=== PATIENT | female | born 1965 | race Caucasian/White ===

== ENCOUNTER 2017-03-17 11:00 | Emergency (ER) | payer BC ==
--- OUTSIDE RECORDS SUMMARY | 2017-03-17 12:24 | XMS REPORT ---
:1965 External Reference #:[id number] Author Organization [employer] [facility] Address [address] [address] Phone [phone] Care Team Providers Name Role Phone Nixon Sawyer MD Care Team Information Consulting Technical Manager Unavailable Nixon Sawyer MD Primary Care Physician Unavailable Payers Type Date Identification Numbers Payment Provider Subscriber Commercial Policy Number: [id number] BS Facets Kaylan Main PayID: [id number] [address] [address] [place] [address] Problems Date Description Provider Status Onset: 04/12/2005 Obstructive sleep apnea Anna Marrero DNP, RN, Active syndrome 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 Family History Date Family Member(s) Problem(s) Comments Father due to Age 47 ID () Mother due to At 58 Cancer () Mother Heart Disease Mother Breast Cancer Mother Lung Cancer Mother Hodgkin's Lymphoma Mother Ovarian Cancer Mother Melanoma Social History Type Date Description Comments Marital Status Lives With Occupation Currently Working Cigarette Use Quit 20 Years Ago ETOH Use Occasionally consumed alcohol in the past Smoking Patient is a former smoker Recreational Drug Use Denies Drug Use Daily Caffeine Consumes on average 2 cups of hot tea per day Daily Caffeine Soda 2x per week Exercise Type/Frequency Does not exercise Allergies, Adverse Reactions, Alerts Date Description Reaction Status Severity Comments 11/15/2014 Codeine active 11/15/2014 Ultram active 11/15/2014 Keflex active bact 11/15/2014 Bactrim active 11/15/2014 Levaquin active 11/15/2014 IVP Contrast active Medications Medication Date Status Form Strength Qnty SIG Indications Ordering Provider Maria C Root 11/27/ Active Capsules 500mg as Unknown 2016 directed Tumeric 11/27/ Active Tablets as Unknown 2015 directed Naltrexone 02/06/ Active 4.5mg as Unknown 2014 directed Famciclovir 12/26/ Active Tablets 500mg as needed Unknown 2014 by mouth Buspirone HCL 11/14/ Active Tablets 5mg take one Unknown 2014 tablet by mouth 3 times a day Paxil 11/14/ Active Tablets 20mg 1 by mouth Unknown 2014 every day Xyzal 11/14/ Active Tablets 2.5mg 1 by mouth Unknown 2014 every day Vitamin D-3 11/14/ Active Capsules 5000Unit 2 by mouth Unknown 2014 every day Nortriptyline 11/14/ Active Capsules 25mg 1 by mouth Unknown HCL 2014 every night at bedtime Lipitor 11/14/ Active Tablets 10mg one tab by Unknown 2014 mouth every night at bedtime Aspirin 11/14/ Active Tablets DR 81mg 1 by mouth Unknown 2014 every day Glucosamine / Active Unknown Chondroitin 0000 1500 Complex Milk Thistle 12/27/ Hx Capsules 175mg by mouth Anna 2014 - every day Elida, 02/23/ ITALIA, RN, 2018 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 Vitamin C 11/15/ Hx Chewtabs 500mg 1 by mouth Anna 2014 - every day Elida 11/15/ ITALIA, RN, 2015 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 Dicyclomine HCL 11/14/ Hx Capsules 10mg three Unknown 2014 - times a day as 2016 needed Protonix 11/14/ Hx Tablets DR 40mg 1 by mouth Unknown 2014 - every day 2017 Famvir 11/14/ Hx Tablets 500mg 2 tabs Unknown 2014 - twice a 02/23/ day as 2018 needed Calcium 600 + D 11/14/ Hx Tablets 600-200mg- 1 by mouth Unknown 2014 - Unit every day 2014 Pentasa 11/14/ Hx Capsules 250mg 1 by mouth Unknown 2014 - ER four times 11/27/ a day 2016 Budesonide ER 11/14/ Hx Caps ER 3mg 2 by mouth Unknown 2014 - 24HR daily 2017 Remicade 11/14/ Hx Solution 100mg every 8 Unknown 2014 - Rec weeks 2017 Fish Oil 11/14/ Hx Capsules 1000mg 1 by mouth Unknown 2014 - DR every day 2017 Triamcinolone 11/14/ Hx Lotion 0.1% apply to Unknown Acetonide 2015 - dry skin 02/23/ once or 2018 twice daily Vital Signs Date Vital Result Comment 02/23/2017 Height 63 inches 5'3" Weight 260.50 lb with shoes Heart Rate 88 /min BP Systolic Sitting 138 mmHg Lue large cuff BP Diastolic Sitting 100 mmHg Lue large cuff Respiratory Rate 16 /min O2 % BldC Oximetry 97 % On Ra BMI (Body Mass Index) 46.1 kg/m2 12/01/2015 Height 63 inches 5'3" Weight 225.00 lb per pt Heart Rate 82 /min BP Systolic Sitting 130 mmHg BP Diastolic Sitting 76 mmHg Respiratory Rate 16 /min O2 % BldC Oximetry 97 % BMI (Body Mass Index) 39.9 kg/m2 12/27/2014 Heart Rate 87 /min BP Systolic Sitting 124 mmHg BP Diastolic Sitting 68 mmHg Respiratory Rate 18 /min O2 % BldC Oximetry 97 % 11/15/2014 Height 64 inches 5'4" Weight 259.25 lb Heart Rate 89 /min BP Systolic 128 mmHg BP Diastolic 72 mmHg Respiratory Rate 14 /min Body Temperature 98.6 F O2 % BldC Oximetry 97 % BMI (Body Mass Index) 44.5 kg/m2 Neck Circumference in inches 16 Results Description No Information Procedures Description No Information Encounters Type Date Location Provider CPT E/M Dx Office Visit 12/01/2015 [facility] Anna Marrero, 63158 G47.33 9:30a [facility] RN, BONIFACIO-NOEMÍ Office Visit 12/27/2014 [facility] Anna Marrero 55302 G47.33 3:15p [facility] ECHAVARRIA RN, BONIFACIO-NOEMÍ Office Visit 11/15/2014 [facility] Anna Marrero, 81203 G47.33 3:00p [facility] ECHAVARRIA RN, BONIFACIO-NOEMÍ Office Visit 11/12/2011 [facility] [place], [address] 327.23 11:58a [facility] Erica Plan of Care 02/23/2017 - Anna Marrero DNP, FREDDY, BONIFACIO-[id number] Obstructive sleep apnea ( adult) (pediatric)Comments:Sleep Apnea - mild 9.9/hour initial dx 2005. On CPAP AHI 1.9/hour (normal)Follow up:1 yearRecommendations:Continue PAP device, Benefitting and compliant with treatment. If you have any sleepiness while driving you MUST avoid operating a vehicle or machinery. If you have difficulty with your equipment, or need to replace your mask or hoses, please contact your homecare agency. A weight change of 20 pounds or more may have an effect on your equipment; if you are experiencing problems please call for an appointment. If you have any further questions, please call the [facility] at [phone].z68.42 Body mass index (BMI) 45.0-49.9, adultRecommendations:Recommend exercise and weight loss measures
[2017-03-17 12:31] VITALS: BP 126/78
--- NOTE | 2017-03-17 12:51 | UC ---
FLU HPI - HPI Summary HPI Summary: 52F presents with headache, fatigue body aches, and diarrhea for a couple days. She states that it started with ear fullness and then body aches. She then developed generalized abdominal pain and diarrhea. She denies any blood in her stool. She denies any vomiting but does admit to occasionally nausea. She admits to fevers. She denies any neck stiffness. She has not taken anything for her symptoms. She admits to a decrease in appetite. She admits to occasionally cough and she admits to sore throat. - History of Current Complaint Chief Complaint: UCRespiratory Stated Complaint: HEADACHE BODY ACHES SORE THROAT Time Seen by Provider: 03/17/17 12:33 Hx Last Menstrual Period: 2002 Pain Intensity: 0 - Allergy/Home Medications Allergies/Adverse Reactions: Allergies Allergy/AdvReac Type Severity Reaction Status Date / Time Cephalexin [From Keflex] Allergy Hives Verified 03/17/17 12:17 Codeine Allergy Difficulty Verified 03/17/17 12:17 Breathing/Wheezing Iodinated Contrast Media Allergy Anaphylatic Verified 03/17/17 12:17 [IV CONTRAST DYE] Shock Levofloxacin [From Levaquin] Allergy Difficulty Verified 03/17/17 12:17 Swallowing Penicillins Allergy Difficulty Verified 03/17/17 12:17 Breathing/Wheezing Sulfamethoxazole Allergy Hives Verified 03/17/17 12:17 w/Trimethoprim [From Bactrim] Tramadol [From Ultram] Allergy Difficulty Verified 03/17/17 12:17 Breathing/Wheezing Home Medications: Home Medications Xrihpbdhagm-Hifrnnvcshs-Boo C- [Glucosamine Chondroitin] 1 tab PO DAILY [History Confirmed 03/17/17] Misc Natural Products [Turmeric Curcumin] 1 cap PO DAILY 03/17/17 [History Confirmed 03/17/17] PMH/Surg Hx/FS Hx/Imm Hx Endocrine History: Other Other Endocrine History: no DM GI/ History: Other Other GI/ History: crohns - Surgical History Surgical History: Yes Surgery Procedure, Year, and Place: HYSTERECTOMY, MARYANN MASTECTOMIES prophylactaly , CHOLECYSTECTOMY, - Family History Known Family History: Positive: Other - brca1 - Social History Alcohol Use: None Substance Use Type: None Smoking Status (MU): Former Smoker When Did the Patient Quit Smoking/Using Tobacco: 1993 Review of Systems Constitutional: Fever, Fatigue Respiratory: Cough Gastrointestinal: Abdominal Pain, Diarrhea All Other Systems Reviewed And Are Negative: Yes Physical Exam Triage Information Reviewed: Yes Appearance: Well-Appearing Vital Signs: Initial Vital Signs Temp 99.2 F 03/17/17 12:22 Pulse 83 03/17/17 12:22 Resp 18 03/17/17 12:22 BP 126/78 03/17/17 12:22 Pulse Ox 99 03/17/17 12:22 Vital Signs Reviewed: Yes Eye Exam: Normal ENT: Positive: Normal ENT inspection, Pharynx normal, TMs normal, Uvula midline , Other - soft palate symmetric. Negative: Tonsillar swelling, Tonsillar exudate, Trismus, Muffled voice Neck: Positive: Supple, Nontender, No Lymphadenopathy Respiratory: Positive: Lungs clear, Normal breath sounds Cardiovascular: Positive: RRR Abdomen Description: Positive: Nontender, Soft Bowel Sounds: Positive: Present Musculoskeletal Exam: Normal Neurological Exam: Normal Psychological Exam: Normal Skin Exam: Normal Flu Course/Dx - Course Course Of Treatment: 52F presents with headache, fatigue body aches, and diarrhea for a couple days. She states that it started with ear fullness and then body aches. She then developed generalized abdominal pain and diarrhea. She denies any blood in her stool. She denies any vomiting but does admit to occasionally nausea. She admits to fevers. She denies any neck stiffness. She has not taken anything for her symptoms. She admits to a decrease in appetite. She admits to occasionally cough and she admits to sore throat. on exam pharynx erythema uvula midline, soft palate symmetric, abdomen soft nontender. flu neg. medication reviewed. blood pressure in pre-htn range so will follow up with primary. discussed treatment options and patient will start using tyenlol for pain. patient understand and agrees with plan. - Differential Dx/Diagnosis Differential Diagnosis/HQI/PQRI: Influenza, Pneumonia, Upper Respiratory Infection Provider Diagnoses: upper respiratory infection Discharge - Discharge Plan Condition: Good Disposition: HOME Patient Education Materials: Upper Respiratory Infection (ED) Forms: *Work Release Referrals: Nixon Sawyer MD [Primary Care Provider] - Additional Instructions: Take Tylenol for headache every 6 hours Drink small amounts of fluid as tolerated When able to eat follow BRAT diet: Bananas, rice, applesauce, toast Follow up with primary within 5 days Return to ED if develop any new or worsening symptoms
== END 2017-03-17 13:01 | disposition home or self-care (01) ==
LOC: UCCORT 11:00
DX: J06.9 Acute upper respiratory infection, unspecified (principal); Z87.891 Personal history of nicotine dependence; Z88.5 Allergy status to narcotic agent; Z88.0 Allergy status to penicillin; Z88.2 Allergy status to sulfonamides; Z88.3 Allergy status to other anti-infective agents; Z91.041 Radiographic dye allergy status
CPT/HCPCS: 87502; 99212; G0463

== ENCOUNTER 2017-03-20 07:08 | Emergency (ER) | payer BC ==
--- NOTE | 2017-03-20 07:32 | UC ---
Respiratory Complaint HPI - HPI Summary HPI Summary: 5 days of congestion and cough. She was seen here and this note was reviewed. Influenza neg. She was dx with uri. Now she has more sinus pressure and ear pressure making it hard to use CPAP at night. She denies fever or productive cough. No known lung disease. - History of Current Complaint Stated Complaint: RE-CHECK SORE THOAT,COUGH,ACHY Time Seen by Provider: 03/20/17 07:18 Hx Obtained From: Patient Hx Last Menstrual Period: 2002 Onset/Duration: Gradual Onset, Lasting Days Timing: Constant Severity Initially: Moderate Severity Currently: Moderate Character: Cough: Nonproductive Aggravating Factors: Deep Breaths, Recumbent Position Alleviating Factors: Upright Position, Nothing Associated Signs And Symptoms: Positive: URI, Nasal Congestion, Sinus Discomfort - Allergies/Home Medications Allergies/Adverse Reactions: Allergies Allergy/AdvReac Type Severity Reaction Status Date / Time Cephalexin [From Keflex] Allergy Hives Verified 03/17/17 12:17 Codeine Allergy Difficulty Verified 03/17/17 12:17 Breathing/Wheezing Iodinated Contrast Media Allergy Anaphylatic Verified 03/17/17 12:17 [IV CONTRAST DYE] Shock Levofloxacin [From Levaquin] Allergy Difficulty Verified 03/17/17 12:17 Swallowing Penicillins Allergy Difficulty Verified 03/17/17 12:17 Breathing/Wheezing Sulfamethoxazole Allergy Hives Verified 03/17/17 12:17 w/Trimethoprim [From Bactrim] Tramadol [From Ultram] Allergy Difficulty Verified 03/17/17 12:17 Breathing/Wheezing PMH/Surg Hx/FS Hx/Imm Hx Previously Healthy: No - Surgical History Surgical History: Yes Surgery Procedure, Year, and Place: HYSTERECTOMY, MARYANN MASTECTOMIES prophylactaly , CHOLECYSTECTOMY, - Family History Known Family History: Positive: Other - brca1 - Social History Occupation: Employed Full-time Alcohol Use: None Substance Use Type: None Smoking Status (MU): Former Smoker When Did the Patient Quit Smoking/Using Tobacco: 1993 Review of Systems ENT: Sinus Congestion Respiratory: Cough All Other Systems Reviewed And Are Negative: Yes Physical Exam Triage Information Reviewed: Yes Appearance: Well-Appearing - Non toxic but frequent cough., Obese Vital Signs Reviewed: Yes ENT: Positive: Hearing grossly normal, Pharynx normal, Nasal congestion, TM bulging, Uvula midline. Negative: Pharyngeal erythema, Nasal drainage, TM dull , TM red, Tonsillar swelling, Tonsillar exudate, Trismus, Muffled voice, Sinus tenderness Neck: Positive: Supple, Nontender, No Lymphadenopathy Respiratory: Positive: Lungs clear, Normal breath sounds, No respiratory distress, No accessory muscle use. Negative: Respiratory distress, Decreased breath sounds, Accessory muscle use, Crackles, Rhonchi, Stridor, Wheezing Cardiovascular: Positive: RRR, No Murmur, Pulses Normal Abdomen Description: Positive: No Organomegaly, Soft. Negative: Distended, Guarding Musculoskeletal: Positive: ROM Intact, No Edema Neurological: Positive: Alert, Muscle Tone Normal. Negative: Fatigued Psychological: Positive: Age Appropriate Behavior Skin: Negative: rashes Respiratory Course/Dx - Course Course Of Treatment: NO signs of bacterial infections at this point. We discussed supportive care and focus on decongestants and sinus irrigation. Z pack if not better by day 9. No clinical signs of pnuemonia. - Differential Dx/Diagnosis Provider Diagnoses: uri]. viral sinusitis. Discharge - Discharge Plan Condition: Good Disposition: HOME Prescriptions: Azithromyxin MARIXA (NF) [Z-Marixa (Zithromax) 250 mg tabs #6] 2 tab PO .TODAY, THEN 1 DAILY #6 tab Benzonatate CAP* [Tessalon 100 MG CAP*] 100 mg PO TID PRN #30 cap PRN Reason: Cough Patient Education Materials: Upper Respiratory Infection (DC) Forms: *Work Release Referrals: Nixon Sawyer MD [Primary Care Provider] - If Needed
[2017-03-20 07:50] VITALS: BP 150/90
== END 2017-03-20 07:50 | disposition home or self-care (01) ==
LOC: UCCORT 07:08
DX: J06.9 Acute upper respiratory infection, unspecified (principal); J32.9 Chronic sinusitis, unspecified; E66.9 Obesity, unspecified; Z90.710 Acquired absence of both cervix and uterus; Z90.49 Acquired absence of other specified parts of digestive tract; Z90.13 Acquired absence of bilateral breasts and nipples; Z88.5 Allergy status to narcotic agent; Z88.0 Allergy status to penicillin; Z88.2 Allergy status to sulfonamides; Z88.1 Allergy status to other antibiotic agents; Z91.041 Radiographic dye allergy status; Z87.891 Personal history of nicotine dependence
CPT/HCPCS: 99212; G0463

== ENCOUNTER 2018-05-23 07:21 | Emergency (ER) | payer BC ==
--- OUTSIDE RECORDS SUMMARY | 2018-05-23 07:30 | XMS REPORT | Continuity of Care Document ---
:1965 External Reference #:[id number] Author Name Karol Shoemaker Care Team Providers Name Role Phone Nixon Sawyer MD Care Team Information Precision Agriculture Technician Unavailable Nixon Sawyer MD Primary Care Physician Unavailable Payers Date Identification Numbers Payment Provider Subscriber Policy Number: [id number] BS Facets Kaylan Main PayID: [id number] [address] [place] [place] [address] Expires: 2017 Policy Number: [id number] BS Of [place] Main Group Number: [id number] [address] [address] Group Name: [place] [id number] PayID: [id number] Advance Directives Description No Information Available Problems Date Description Provider Status Onset: 04/12/2005 Obstructive sleep apnea Anna Marrero DNP, RN, Active syndrome 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 Family History Date Family Member(s) Observation Comments Father due to Age 47 MS () Mother due to At 58 Cancer () Mother Heart Disease Mother Breast Cancer Mother Lung Cancer Mother Hodgkin's Lymphoma Mother Ovarian Cancer Mother Melanoma Social History Type Date Description Comments Sex Unknown Marital Status Lives With Occupation Currently Working Cigarette Use Quit 20 Years Ago ETOH Use Occasionally consumed alcohol in the past Tobacco Use Start: Unknown End: Patient is a former smoker Unknown Recreational Drug Use Denies Drug Use Smoking Status Reviewed: 05/15/18 Patient is a former smoker Exercise Type/Frequency Does not exercise Allergies, Adverse Reactions, Alerts Date Description Reaction Status Severity Comments 11/15/2014 Codeine Active 11/15/2014 Ultram Active 11/15/2014 Keflex Active bact 11/15/2014 Bactrim Active 11/15/2014 Levaquin Active 11/15/2014 IVP Contrast Active 05/15/2018 Penicillin Active Medications Medication Date Status Form Strength Qnty SIG Indications Ordering Provider Maria C Root 11/27/ Active Capsules 500mg as Unknown 2015 directed Tumeric 11/27/ Active Tablets as Unknown 2015 directed Famciclovir 12/26/ Active Tablets 500mg as [...] / Active Unknown Chondroitin 0000 1500 Complex Magnesium / Active 1 by mouth Unknown 0000 one time per day CBD Oil / Active 300 mg by Unknown 0000 mouth two times per day Naltrexone 02/06/ Hx 4.5mg as Unknown 2014 - directed 2018 Milk Thistle 12/27/ Hx Capsules 175mg by mouth Anna 2014 - every day Elida 02/23/ ITALIA, RN, 2018 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 Vitamin C 11/15/ Hx Chewtabs 500mg 1 by mouth Anna 2014 - every day Elida 11/15/ ITALIA, RN, 2014 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 Dicyclomine HCL 11/14/ Hx Capsules 10mg three Unknown 2014 - times a 11/27/ day as 2016 needed Protonix 11/14/ Hx [...] Caps ER 3mg 2 by mouth Unknown 2015 - 24HR daily 2017 Remicade 11/14/ Hx Solution 100mg every 8 Unknown 2015 - Rec weeks 2017 Fish Oil 11/14/ Hx Capsules 1000mg 1 by mouth Unknown 2015 - DR every day 2017 Triamcinolone Hx Lotion 0.1% apply to Unknown Acetonide 2015 - dry skin 02/23/ once or 2018 twice daily Immunizations Description No Information Available Vital Signs Date Vital Result Comment 05/15/2018 8:55am Height 63 inches 5'3" Weight 260.12 lb Heart Rate 78 /min BP Systolic Sitting 124 mmHg Lue large cuff BP Diastolic Sitting 100 mmHg Lue large cuff Respiratory Rate 14 /min O2 % BldC Oximetry 98 % On Ra BMI (Body Mass Index) 46.1 kg/m2 02/23/2017 9:32am Height 63 inches 5'3" Weight 260.50 lb with shoes Heart Rate 88 /min BP Systolic Sitting 138 mmHg Lue large cuff BP Diastolic Sitting 100 mmHg Lue large cuff Respiratory Rate 16 /min O2 % BldC Oximetry 97 % On Ra BMI (Body Mass Index) 46.1 kg/m2 12/01/2015 9:32am Height 63 inches 5'3" Weight 225.00 lb per pt Heart Rate 82 /min BP Systolic Sitting 130 mmHg BP Diastolic Sitting 76 mmHg Respiratory Rate 16 /min O2 % BldC Oximetry 97 % BMI (Body Mass Index) 39.9 kg/m2 12/27/2014 3:22pm Heart Rate 87 /min BP Systolic Sitting 124 mmHg BP Diastolic Sitting 68 mmHg Respiratory Rate 18 /min O2 % BldC Oximetry 97 % 11/15/2014 2:55pm Height 64 inches 5'4" Weight 259.25 lb Heart Rate 89 /min BP Systolic 128 mmHg BP Diastolic 72 mmHg Respiratory Rate 14 /min Body Temperature 98.6 F O2 % BldC Oximetry 97 % BMI (Body Mass Index) 44.5 kg/m2 Neck Circumference in inches 16 Results Description No Information Available Procedures Description No Information Available Encounters Type Date Location Provider Dx Diagnosis Office Visit 03/01/2018 [facility] Dianne Tate, L82.1 Other seborrheic 4:20p Rajan PÉREZ keratosis L91.0 Hypertrophic scar L85.3 Xerosis cutis Office Visit 02/23/2017 [facility] Anna G47.33 Obstructive sleep 9:15a [facility] Marrero RN, apnea (adult) [facility]- (pediatric) E66.01 Morbid (severe) obesity due to excess calories Z68.42 Body mass index (BMI) 45.0-49.9, adult Office Visit 12/01/2015 [facility] Anna G47.33 Obstructive sleep 9:30a [facility] Marrero RN, apnea (adult) [facility] 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 (pediatric) Office Visit 12/27/2014 [facility] Anna G47.33 Obstructive sleep 3:15p [facility] Mar[facility]ro RN, apnea (adult) [facility] 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 (pediatric) Office Visit 11/15/2014 [facility] Anna G47.33 Obstructive sleep 3:00p [facility] Marrero RN, apnea (adult) [facility] ELECTRONIC EQUIPMENT REPAIRER- (pediatric) Office Visit 11/12/2011 [facility] Squires 327.23 Obstructive Sleep 11:58a [facility] Apnea Adult & Pediatric Plan of Treatment Future Appointment(s):09/07/2018 4:15 pm - Dianne Tate MD at [facility] AT Zpfmyylg35/25/2019 - Anna Marrero DNP, RN, [facility]-[id number] Obstructive sleep apnea (adult) (pediatric)Comments:Sleep Apnea - mild 9.9/hour initial dx 2005. Equipment from 2010.On CPAP AHI 1.3/hourFollow up:1 yearRecommendations:Continue PAP device, Benefitting and compliant with treatment. Cleaning Wipe off mask daily (baby wipe-no scent, or warm water) Clean mask, tubing, filter, and water chamber weekly in mild no scent dish soap and water. Hang to dry. If you have any sleepiness while driving you MUST avoid operating a vehicle or machinery. If you have difficulty with your equipment, or need to replace your mask or hoses, please contact your homecare agency. Orders to be sent to [facility]: [phone] A weight change of 20 pounds or more may have an effect on your equipment; if you are experiencing problems please call for an appointment. If you have any further questions, please call the Sleep Disorder Center at [phone].Z68.42 Body mass index ( BMI) 45.0-49.9, adultRecommendations:Avoid weight gain
[2018-05-23 07:35] VITALS: BP 158/98
--- NOTE | 2018-05-23 07:48 | UC ---
Throat Pain/Nasal Jeffrey HPI - HPI Summary HPI Summary: sinus pain and pressure x 4 days had cold symptoms for the past 10 days nasal congestion, cough , pnd, fever, no chills, no body aches - History of Current Complaint Chief Complaint: UCRespiratory Stated Complaint: SINUS COMPLAINT,FEVER Time Seen by Provider: 05/23/18 07:34 Hx Obtained From: Patient Hx Last Menstrual Period: 2002 Onset/Duration: Gradual Onset, Lasting Days - 10, Still Present, Worse Since - past 3 days Severity: Moderate Pain Intensity: 3 Cough: Nonproductive Associated Signs & Symptoms: Positive: Sinus Discomfort, Nasal Discharge, Fever. Negative: Vomiting, Rash - Allergies/Home Medications Allergies/Adverse Reactions: Allergies Allergy/AdvReac Type Severity Reaction Status Date / Time cephalexin [From Keflex] Allergy Hives Verified 05/23/18 07:41 codeine Allergy Difficulty Verified 05/23/18 07:41 Breathing/Wheezing levofloxacin [From Levaquin] Allergy Difficulty Verified 05/23/18 07:41 Swallowing Penicillins Allergy Difficulty Verified 05/23/18 07:41 Breathing/Wheezing sulfamethoxazole Allergy Hives Verified 05/23/18 07:41 [From Bactrim] tramadol [From Ultram] Allergy Difficulty Verified 05/23/18 07:41 Breathing/Wheezing trimethoprim [From Bactrim] Allergy Hives Verified 05/23/18 07:41 contrast dye Allergy Anaphylatic Uncoded 05/23/18 07:41 Shock Home Medications: Home Medications Acetaminophen [Tylenol Extra Strength] 500 mg PO ONCE PRN 05/23/18 [History Confirmed 05/23/18] PMH/Surg Hx/FS Hx/Imm Hx - Additional Past Medical History Additional PMH: Crohn's disease, sleep apnea Cardiovascular History: Hypertension - Surgical History Surgical History: Yes Surgery Procedure, Year, and Place: HYSTERECTOMY, MARYANN MASTECTOMIES prophylactaly , CHOLECYSTECTOMY, - Family History Known Family History: Positive: Hypertension, Other - brca1 - Social History Alcohol Use: None Substance Use Type: None Smoking Status (MU): Former Smoker When Did the Patient Quit Smoking/Using Tobacco: 1993 Review of Systems All Other Systems Reviewed And Are Negative: Yes Constitutional: Positive: Negative Skin: Positive: Negative Eyes: Positive: Negative ENT: Positive: Sore Throat, Ear Ache, Nasal Discharge, Sinus Congestion, Sinus Pain/Tenderness Respiratory: Positive: Cough Cardiovascular: Positive: Negative Is Patient Immunocompromised?: No Physical Exam Triage Information Reviewed: Yes Appearance: Well-Appearing, No Pain Distress, Well-Nourished Vital Signs: Initial Vital Signs Temp 97.5 F 05/23/18 07:29 Pulse 85 05/23/18 07:29 Resp 18 05/23/18 07:29 BP 158/98 05/23/18 07:29 Pulse Ox 97 05/23/18 07:29 Vital Signs Reviewed: Yes Eye Exam: Normal Eyes: Positive: Conjunctiva Clear ENT: Positive: Normal ENT inspection, Hearing grossly normal, Pharynx normal, Nasal congestion, Nasal drainage, TMs normal, Sinus tenderness. Negative: TM bulging, TM dull, TM red, Tonsillar swelling, Tonsillar exudate Neck: Positive: Supple, Nontender, No Lymphadenopathy Respiratory: Positive: Chest non-tender, Lungs clear, Normal breath sounds Cardiovascular: Positive: RRR, No Murmur, Pulses Normal Skin Exam: Normal Throat Pain/Nasal Course/Dx - Course Course Of Treatment: HTN: cont. with current meds monitor you bp daily follow up with your pcp in one week - Differential Dx/Diagnosis Provider Diagnosis: Acute bacterial sinusitis, Hypertension Discharge - Sign-Out/Discharge Documenting (check all that apply): Patient Departure All imaging exams completed and their final reports reviewed: No Studies - Discharge Plan Condition: Stable Disposition: HOME Prescriptions: DOXYcycline CAP(*) [DOXYcycline 100MG CAP(*)] 100 mg PO BID #20 cap Fluticasone NASAL SPRAY 50MCG* [Flonase NASAL SPRAY 50MCG*] 2 spray BOTH NARES DAILY #1 btl Patient Education Materials: Sinusitis (ED) Forms: *Work Release Referrals: Nixon Sawyer MD [Primary Care Provider] - If Needed - Billing Disposition and Condition Condition: STABLE Disposition: Home
== END 2018-05-23 07:49 | disposition home or self-care (01) ==
LOC: UCCORT 07:21
DX: J01.80 Other acute sinusitis (principal); B96.89 Other specified bacterial agents as the cause of diseases classified elsewhere; I10 Essential (primary) hypertension; R09.81 Nasal congestion; R05 Cough; R50.9 Fever, unspecified; Z88.0 Allergy status to penicillin; Z88.1 Allergy status to other antibiotic agents; Z88.2 Allergy status to sulfonamides; Z88.5 Allergy status to narcotic agent; Z88.8 Allergy status to other drugs, medicaments and biological substances; Z91.041 Radiographic dye allergy status; Z87.891 Personal history of nicotine dependence
CPT/HCPCS: 99201; G0463

== ENCOUNTER 2018-06-24 20:43 | Emergency (ER) | payer BC ==
--- OUTSIDE RECORDS SUMMARY | 2018-06-24 20:52 | XMS REPORT | Continuity of Care Document ---
:1965 External Reference #:[id number] Author Name Leonie Garcia M.D. Address [address] [place] [address] [address] [place] [address] Care Team Providers Name Role Phone aGto Fontana MD Care Team Information Director Home Unavailable Nixon Sawyer Primary Care Physician Unavailable Payers Date Identification Numbers Payment Provider Subscriber Effective: Policy Number: [id number] Dayron Main 2017 [employer] Name: [address] [address] PayID: [id number] [place] [address] Expires: 2011 Policy Number: Dayron Main [id number] [employer] PayID: [id number] [address] [place] [address] Expires: 2009 Policy Number: Dayron Main [id number] [employer] PayID: [id number] [address] [place] [address] Advance Directives Description No Information Available Problems Active Problems Provider Date Atrophic vaginitis Leonie Garcia M.D. Onset: 03/15/2012 Family history of malignant neoplasm of Leonie Garcia M.D. Onset: 2012 ovary Family History Date Family Member(s) Observation Comments General See Scanned Chart General Breast Cancer Social History Type Date Description Comments Sex Unknown Tobacco Use Start: Unknown Never Smoked Cigarettes STD's HSV2 Allergies, Adverse Reactions, Alerts Active Allergies Reaction Severity Comments Date Penicillin 06/09/2011 Keflex 06/09/2011 Bactrim 06/09/2011 Codeine 06/09/2011 Reglan 06/09/2011 Levaquin 06/09/2011 Dye Anaphylaxis ivp dye 10/31/2014 Ultram 12/31/2015 Medications Active Medications SIG Qnty Indications Ordering Date Provider Terconazole insert vaginally 1 45gm Leonie 06/07/2018 0.4% Cream applicatorful once Savanah GarciaD. daily at bedtime for 7 days Lipitor Unknown 20mg Tablets Buspirone HCL Unknown 5mg Tablets Nortriptyline HCL Unknown 25mg Capsules Aspir-81 1 po bid Unknown 81mg Tablets Vitamin D-3 Unknown 1000Unit Tablets Paroxetine HCL Unknown 20mg Tablets Maria C Unknown 500mg Capsules Turmeric Unknown 450mg Capsules Levocetirizine Unknown Dihydrochloride 5mg Tablets Glucosamine Unknown Chondroitin 1500 Complex 1500Com Capsules Magnesium by mouth every at Unknown 250mg Tablets bedtime History Medications Clotrimazole/Betamethasone apply to 15gm Leonie 05/31/2017 - Dipropionate affected area 3 Erica Garcia 06/06/2018 1-0.05% Cream times daily Cleocin 2% 1 applicator 40gm Leonie 03/15/2012 - Cream pv qhs x 5 Erica Garcia 08/20/2014 nights Cleocin 1 pv qhs x 3 3unlogan Liu,[facility] 05/29/2009 - 100mg Suppository on, M.D. 06/09/2011 Pentasa Unknown - 500mg Capsules ER 12/31/2015 Famvir 250mg 1 po bid 60tabs Unknown - Tablets 10/31/2014 Calcium 600+D Plus Minerals Unknown - [id number] 10/31/2014 Tablets Vitamin C CR Unknown - 500mg Capsules ER 10/31/2014 Dicyclomine HCL Unknown - 10mg Capsules 08/20/2014 Pantoprazole Sodium Unknown - 40mg Tablets DR 12/31/2015 Budesonide ER TK 3 CS PO qam Unknown - 3mg Caps ER 24HR 08/20/2014 Levocetirizine Dihydrochloride Unknown - 5mg Tablets 05/30/2017 Famciclovir Unknown - 500mg Tablets 08/20/2014 Dicyclomine HCL Unknown - 20mg Tablets 12/31/2015 Prednisone Unknown - 5mg Tablets 08/20/2014 Remicade Unknown - 100mg Solution Rec 12/31/2015 Multivitamins Unknown - Capsules 05/30/2017 Immunizations Description No Information Available Vital Signs Date Vital Result Comment 06/07/2018 3:46pm BP Systolic 130 mmHg BP Diastolic 84 mmHg Height 63 inches 5'3" Weight 263.00 lb BMI (Body Mass Index) 46.6 kg/m2 05/31/2017 3:46pm BP Systolic 110 mmHg BP Diastolic 78 mmHg Height 63 inches 5'3" Weight 263.00 lb BMI (Body Mass Index) 46.6 kg/m2 03/17/2016 4:11pm BP Systolic 132 mmHg BP Diastolic 86 mmHg Height 63 inches 5'3" Weight 236.38 lb BMI (Body Mass Index) 41.9 kg/m2 12/31/2015 3:56pm BP Systolic 122 mmHg BP Diastolic 82 mmHg Height 63 inches 5'3" Weight 225.25 lb BMI (Body Mass Index) 39.9 kg/m2 10/31/2014 10:21am BP Systolic 122 mmHg BP Diastolic 82 mmHg Height 63 inches 5'3" Weight 258.25 lb BMI (Body Mass Index) 45.7 kg/m2 08/20/2014 1:08pm BP Systolic 118 mmHg BP Diastolic 82 mmHg Height 63 inches 5'3" Weight 264.38 lb BMI (Body Mass Index) 46.8 kg/m2 03/15/2012 2:23pm BP Systolic 126 mmHg BP Diastolic 78 mmHg Height 63 inches 5'3" Weight 243.25 lb BMI (Body Mass Index) 43.1 kg/m2 06/09/2011 2:56pm BP Systolic 138 mmHg BP Diastolic 82 mmHg Height 63 inches 5'3" Weight 245.00 lb BMI (Body Mass Index) 43.4 kg/m2 Results Test Date Facility Test Result H/L Range Note Laboratory test 06/07/2018 [facility] <pending> finding [address] [place] [address] [phone] Laboratory test 05/31/2017 [facility] TP HighRisk HPV Normal N 1 finding High-Risk HPV 05/31/2017 [facility] HPV Normal N 2 TP HighRisk HPV SEE IMAGE Laboratory test 03/17/2016 [facility] -[id number] finding [address] [place] [address] [phone] U[facility] Culture 12/31/2015 [facility] Urine Culture SPECIMEN DESCRI> [address] [place] [address] [phone] Urinalysis 12/31/2015 [facility] Color YELLOW [address] [place] [address] [phone] Appearance CLEAR Spec Grav Urine 1.004 (1.003-1.030) PH Urine 6.5 (5.0-7.5) Leuk Esterase TRACE Abnormal (Neg) Nitrite Urine NEGATIVE (Neg) Protein Urine NEGATIVE (Neg) Glucose Urine NEGATIVE (Neg) Ketone Urine NEGATIVE (Neg) Urobilinogen 0.2 mg/dL (0-1.0) Bilirubin Urine NEGATIVE (Neg) Blood/HGB Urine TRACE Abnormal (Neg) Urine Micro Only 12/31/2015 [facility] Urine WBC 0-2 [HPF] (0-5) [address] [place] [address] [phone] Urine RBC NONE SEEN [HPF] (0-2) Laboratory test 10/31/2014 [facility] -[id number] finding [address] [place] [address] [phone] Ua And Culture 10/31/2014 [facility] Urine Culture SPECIMEN DESCRI> [address] [place] [address] [phone] Urinalysis 10/31/2014 [facility] Color YELLOW [address] [place] [address] [phone] Appearance CLEAR Spec Grav Urine 1.006 (1.003-1.030) PH Urine 6.0 (5.0-7.5) Leuk Esterase NEGATIVE (Neg) Nitrite Urine NEGATIVE (Neg) Protein Urine NEGATIVE (Neg) Glucose Urine NEGATIVE (Neg) Ketone Urine NEGATIVE (Neg) Urobilinogen 0.2 mg/dL (0-1.0) Bilirubin Urine NEGATIVE (Neg) Blood/HGB Urine NEGATIVE (Neg) Laboratory test 08/20/2014 [facility] (DO Not Use) Cytology Pap See Note N 5 finding Laboratory test 08/20/2014 [facility] -[id number] finding [address] [place] [address] [phone] Urinalysis 08/20/2014 [facility] Color YELLOW [address] [facility] [place] [address] [phone] Appearance CLEAR Spec Grav Urine 1.011 (1.003-1.030) PH Urine 6.0 (5.0-7.5) Leuk Esterase TRACE Abnormal (Neg) Nitrite Urine NEGATIVE (Neg) Protein Urine NEGATIVE (Neg) Glucose Urine NEGATIVE (Neg) Ketone Urine NEGATIVE (Neg) Urobilinogen 0.2 mg/dL (0-1.0) Bilirubin Urine NEGATIVE (Neg) Blood/HGB Urine TRACE Abnormal (Neg) Epithelial Cells NEGATIVE [HPF] (Neg) Hyaline Casts 0.7 [LPF] (0-5) Bacteria NEGATIVE [HPF] (Neg) Urine WBC 1.8 [HPF] (0-8) Urine RBC 2.1 [HPF] (0-3) [facility]a And Culture 08/20/2014 [facility] Urine Culture SPECIMEN DESCRI> 6 [address] [place] [address] [phone] Laboratory test 03/15/2012 [facility] Vag/Cerv SPECIMEN DESCRIP 7 finding [address] [facility] Culture <SEE NOTE> [place] [address] [phone] Group B Strep/Sens SPECIMEN DESCRIP <SEE NOTE> 8 Laboratory test 03/15/2012 [facility] -[id number]-trich finding [address] [facility] [place] [address] [phone] Laboratory test 06/02/2010 [facility] Pap LABORATORY ALLIA [address] <SEE NOTE> [place] [address] [phone] Laboratory test 05/26/2009 [facility] Pap [facility] [address] <SEE NOTE> [place] [address] [phone] Vaginitis Direct Test SPECIMEN DESCRIP <SEE NOTE> 11 Group B Strep/Sens SPECIMEN DESCRIP <SEE NOTE> 12 Misc Genital Culture SPECIMEN DESCRIP <SEE NOTE> 13 [facility] And Culture 05/26/2009 [facility] Urine Culture SPECIMEN DESCRIP 14 ([place]) [address] <SEE NOTE> [place] [address] [phone] Urinalysis 05/26/2009 [facility] Color YELLOW [address] [place] [address] [phone] Appearance CLEAR Spec Grav Urine 1.012 (1.003-1.030) PH Urine 6.0 (5.0-7.5) Leuk Esterase NEGATIVE (Neg) Nitrite Urine NEGATIVE (Neg) Protein Urine NEGATIVE (Neg) Glucose Urine NEGATIVE (Neg) Ketone Urine NEGATIVE (Neg) Urobilinogen 0.2 mg/dL (0-1.0) Bilirubin Urine NEGATIVE (Neg) Blood/HGB Urine NEGATIVE (Neg) Urinalysis 12/25/2007 [facility] Color YELLOW [address] [place] [address] [phone] Appearance CLEAR Spec Grav Urine 1.011 (1.003-1.030) PH Urine 6.5 (5.0-7.5) Leuk Esterase NEGATIVE (Neg) Nitrite Urine NEGATIVE (Neg) Protein Urine NEGATIVE (Neg) Glucose Urine NEGATIVE (Neg) Ketone Urine NEGATIVE (Neg) Urobilinogen NORMAL (Norm) Bilirubin Urine NEGATIVE (Neg) Blood/HGB Urine NEGATIVE (Neg) Laboratory test 12/25/2007 [facility] Urine Culture SPECIMEN [address] [place] [address] DESCRIP <[place] [address] NOTE> [phone] Laboratory test 12/25/2007 [facility] Vag/Cerv SPECIMEN [address] [place] [address] Culture DESCRIP <[place] [address] NOTE> [phone] 1 SPECIMEN PART A. Vaginal, ThinPrep Pap ([employer]) CYTOLOGY HX Date of Last Menstrual Period: n Other Information:Previous Normal Pap: 2014 FINAL DIAGNOSIS INTERPRETATION: Negative for Intraepithelial Lesion or Malignancy. SPECIMEN ADEQUACY:Satisfactory for evaluation. 2 HR-HPV: Not Detected Test performed by the FDA-approved [employer] (Gen-Probe) APTIMA HPV test, which detects HPV genotypes: 16, 18, 31, 33, 35, 39, 45, 51, 52, 56, 58, 59, 66, and 68. 3 SPECIMEN DESCRIPTION BLADDER URINE CULTURE RESULTS <10,000 CFU/ML REPRESENTING URETHRAL JOSE REPORT STATUS FINAL 01/01/2016 4 SPECIMEN DESCRIPTION URINE, COLLECTION METHOD NOT SPECIFIED CULTURE RESULTS <10,000 CFU/ML REPRESENTING URETHRAL JOES REPORT STATUS FINAL 11/01/2014 5 Interpretation: NEGATIVE FOR INTRAEPITHELIAL LESION OR MALIGNANCY. Specimen Adequacy: SATISFACTORY FOR EVALUATION. 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 Rec. # [id number] Date Collected: 08/20/2014 Billing #: [id number] Date Received: 08/20/2014 Requisition # [id number] Physician(s): LEONIE GARCIA MD Source of Specimen: VAGINAL THIN PREP Clinical Information: Date of Last Menstrual Period: None Provided dcl Electronic Signature ALONZO Duran (ASCP) Reported: 08/26/2014 [facility] ICD-9 Code(s) V72.31 6 SPECIMEN DESCRIPTION BLADDER URINE CULTURE RESULTS NO GROWTH REPORT STATUS FINAL 08/21/2014 7 SPECIMEN DESCRIPTION VAGINAL SPECIMEN SPECIAL REQUESTS SENSITIVITY REQUESTED (IF POSITIVE) GROUP B STREP CULT. NEGATIVE FOR BETA HEMOLYTIC STREPTOCOCCI GROUP B BY PCR. CULTURE RESULTS MANY GARDNERELLA VAGINALIS NO NEISSERIA GONORRHOEAE ISOLATED REPORT STATUS FINAL 03/19/2012 8 SPECIMEN DESCRIPTION VAGINAL SPECIMEN SPECIAL REQUESTS SENSITIVITY REQUESTED (IF POSITIVE) CULTURE RESULTS DUPLICATE REQUEST SEE [id number] FOR RESULT REPORT STATUS FINAL 03/15/2012 9 [facility] [address] [place] [address] GYNECOLOGIC CYTOLOGY REPORT Accession Number: [id number] Source of Specimen(s): A: [facility] Vaginal Pap Smear - One Vial Clinical Diagnosis and History: Date of Last Menstrual Period: None Provided Treatment History: Hysterectomy Other Clinical Conditions: Last Pap Smear: 05/31 REFLEX TO DIGENE HPV ASSAY IF RESULTS OF THIS PAP ARE ASCUS Specimen Adequacy Satisfactory for evaluation General Categorization Negative for intraepithelial lesion or malignancy Interpretation NEGATIVE FOR INTRAEPITHELIAL LESION OR MALIGNANCY Reported: 06/04/2010 Electronically Signed Out By Abbey Smith CT([facility]) [facility] w [address] [facility]. [address] [place] [address] GYNECOLOGIC CYTOLOGY REPORT Accession Number: [id number] Source of Specimen(s): A: [facility] Vaginal / Cervical Pap Smear - One Vial Clinical Diagnosis and History: Date of Last Menstrual Period: None Provided Treatment History: Hysterectomy Other Clinical Conditions: Last Pap Smear: 04/28 REFLEX TO DIGENE HPV ASSAY IF RESULTS OF THIS PAP ARE ASCUS Specimen Adequacy Satisfactory for evaluation General Categorization Negative for intraepithelial lesion or malignancy Interpretation NEGATIVE FOR INTRAEPITHELIAL LESION OR MALIGNANCY Reported: 05/28/2009 Electronically Signed Out By Kalani Arrieta CT([facility]) [facility] 11 SPECIMEN DESCRIPTION VAGINAL SPECIMEN RESULT NEGATIVE FOR TRICHOMONAS VAGINALIS NEGATIVE FOR GARDNERELLA VAGINALIS NEGATIVE FOR KELLEY SPECIES REPORT STATUS FINAL 05/26/2009 12 SPECIMEN DESCRIPTION VAGINAL SPECIMEN SPECIAL REQUESTS SENSITIVITY REQUESTED (IF POSITIVE) CULTURE RESULTS BETA HEMOLYTIC STREPTOCOCCI GROUP B ISOLATED BETA HEMOLYTIC STREPTOCOCCI ARE STILL UNIFORMLY SUSCEPTIBLE TO PENICILLIN, CEPHALOSPORINS AND VANCOMYCIN. THIS ISOLATE IS PRESUMED TO BE RESISTANT TO CLINDAMYCIN BASED ON INDUCIBLE RESISTANCE. CLINDAMYCIN MAY STILL BE EFFECTIVE IN SOME PATIENTS. REPORT STATUS FINAL 05/28/2009 ORGANISM BETA HEMOLYTIC STREPTOCOCCI GROUP B ISOLATED METHOD SANCHES BALES CLINDAMYCIN RESISTANT ERYTHROMYCIN RESISTANT 13 SPECIMEN DESCRIPTION VAGINAL/CERVICAL SPECIAL REQUESTS NONE CULTURE RESULTS MODERATE BETA HEMOLYTIC STREPTOCOCCI GROUP B ISOLATED NO NEISSERIA GONORRHOEAE ISOLATED REPORT STATUS FINAL 05/28/2009 14 SPECIMEN DESCRIPTION BLADDER URINE CULTURE RESULTS NO GROWTH REPORT STATUS FINAL 05/27/2009 15 SPECIMEN DESCRIPTION MIDSTREAM URINE,CLEAN CATCH CULTURE RESULTS NO GROWTH REPORT STATUS FINAL 12/26/2007 16 SPECIMEN DESCRIPTION VAGINAL SPECIMEN GROUP B STREP CULT. NEGATIVE FOR BETA HEMOLYTIC STREPTOCOCCI GROUP B BY PCR. CULTURE RESULTS NORMAL VAGINAL JOSE NO NEISSERIA GONORRHOEAE ISOLATED REPORT STATUS FINAL 12/27/2007 Procedures Date Code Description Status 05/29/2009 18474 Ultrasound Transvaginal Sonogram Completed Encounters Type Date Location Provider Dx Diagnosis Office Visit 05/31/2017 Main Office Leonie Garcia, Z01.419 Encntr for food court team member exam 4:00p M.DJossue (general) (routine) w/o abn findings Z12.12 Encounter for screening for malignant neoplasm of rectum Office Visit 03/17/2016 4:00p Main Office Leonie Z01.411 Encntr for food court team member Erica Garcia exam (general) (routine) w abnormal findings Z01.419 Encntr for food court team member exam (general) (routine) w/o abn findings Z12.12 Encounter for screening for malignant neoplasm of rectum N76.0 Acute vaginitis Office Visit 10/31/2014 10:20a Main Office Leonie 616.10 Vaginitis & Erica Garcia Vulvovaginitis Unspec Office Visit 08/20/2014 1:10p Main Office Leonie 616.10 Vaginitis & Erica Garcia Vulvovaginitis Unspec 599.70 Hematuria, Unspecified 627.1 Postmenopausal Bleeding V72.31 Routine Clothing Cutter Screening Examination 616.10 Vaginitis & Vulvovaginitis Unspec V76.51 Special Screening For Malignant Neoplasms Colon Office Visit 03/15/2012 2:30p Main Office Leonie 616.10 Vaginitis & Erica Garcia Vulvovaginitis Unspec Office Visit 06/09/2011 2:30p Main Office Leonie V72.31 Routine Clothing Cutter Erica Garcia Screening Examination V76.51 Special Screening For Malignant Neoplasms Colon Office Visit 06/02/2010 2:30p Main Office Leonie V72.31 Routine Clothing Cutter Erica Garcia Screening Examination V76.41 Rectum Screening Malignant Neoplasm Office Visit 05/26/2009 2:30p Main Office Leonie V72.31 Routine Clothing Cutter Erica Garcia Screening Examination V76.41 Rectum Screening Malignant Neoplasm Office Visit 12/25/2007 3:10p Main Office Leonie 627.1 Postmenopausal Erica Garcia Bleeding 627.3 Atrophic Vaginitis Postmenopausal Office Visit 05/18/2007 2:40p Main Office Leonie V72.31 Routine Clothing Cutter Erica Garcia Screening Examination 789.07 Pain Abdominal Generalized 627.3 Atrophic Vaginitis Postmenopausal Office Visit 11/19/2004 4:15p Main Office Leonie 627.3 Atrophic Vaginitis Erica Garcia Postmenopausal Plan of Treatment Future Appointment(s):06/13/2019 3:45 pm - Leonie Garcia M.D. at Main Bqkyrg8206/07/2018 - Leonie Garcia M.D.Z80.41 Family history of malignant neoplasm of ovaryComments:Patient meets 2015 NCCN criteria for heritable cancer syndromes. Specifically patient has [include alist of criteria to choose.] We are basing this assessment on the family history patient is reporting to us. Affected relative(s) has not been tested in this patient's family because: they are deceasedor they refused testing are unable to be reached have been tested and results are attached. We discussed and offered generic testing and patient accepted. The hereditary cancer panel will screen for 25genes, all of which impact the risk for one or more than eight different answers; breast, colon, prostate, skin, ovary, endometrial, stomach, and pancreas. As outlined by ACOG the following discussion points were reviewed with the patient during the course of todays appointment and the patient stated an understanding of the followin. Possible outcomes of the testing - specifically addressing the issue of positive, negative, and variance of unknown significance. In the case of an unknown significant variance, cancer risks are not yet fully defined.2. In the absence of a known familial mutation, when an unaffected patient is tested, interpretation of the results may be limited. A negative or unknown result does not eliminate the patients familial risk for cancer. Management based on familial risk would be discussed during result consult.3. Patient will consider surveillance, risk-reducing medications and risk-reducing surgery if a clinically actionable mutation is detected; referral to outsidespecialist may be indicated in this case.4. Possible familial implications of test results. If positive, there are risks to relatives to carry some mutations as the patient. If negative, although she cannot pass on a mutation to her children if she does not carry one, other family members still may qualify for testing and may be at risk for an inherited cancer syndrome.5. Discussion regarding state and federal laws regarding genetic discrimination and the privacy of genetic information. These laws do not apply to other forms of insurance, which may include life or disability insurance.AllNew Medication:Terconazole 0.4 % - insert vaginally 1 applicatorful once daily at bedtime for 7 daysComments:cultures - tx terazol, call if other than yeast
[2018-06-24 21:05] VITALS: BP 138/81
[2018-06-24] MEDS ORDERED: Mupirocin 2% OINT* TUBE TOPICAL ONE (21:27)
--- NOTE | 2018-06-24 21:35 | UC ---
Skin Complaint HPI - HPI Summary HPI Summary: Left lower leg itching for 3-4 months; pt has used topical steroid (clobetasol ointment 0.05%) prescribed by 1st medical practice assistant- pt improved while using steroid , but sx returned after tx. Pt saw 2nd medical practice assistant who gave dx of dry skin- no scriipts were written. Area of itching, redness have spread - History of Current Complaint Chief Complaint: UCRash Time Seen by Provider: 06/24/18 20:56 Stated Complaint: SKIN CONCERN - LEFT LEG Hx Obtained From: Patient Hx Last Menstrual Period: 2002 ?: No Onset/Duration: Sudden Onset, Lasting Weeks Skin Exposure Onset/Duration: Weeks Ago, Worse Since: - 2 weeks Timing: Constant Onset Severity: Mild Current Severity: Moderate Pain Intensity: 0 Character: Pruritus, Redness, Raised, Painful Aggravating Factor(s): Touch Associated Signs & Symptoms: Positive: Rash Related History: Other: - unknown, medical practice assistant biopsy came back as dermatitis - Allergy/Home Medications Allergies/Adverse Reactions: Allergies Allergy/AdvReac Type Severity Reaction Status Date / Time cephalexin [From Keflex] Allergy Hives Verified 06/24/18 21:06 codeine Allergy Difficulty Verified 06/24/18 21:06 Breathing/Wheezing levofloxacin [From Levaquin] Allergy Difficulty Verified 06/24/18 21:06 Swallowing Penicillins Allergy Difficulty Verified 06/24/18 21:06 Breathing/Wheezing sulfamethoxazole Allergy Hives Verified 06/24/18 21:06 [From Bactrim] tramadol [From Ultram] Allergy Difficulty Verified 06/24/18 21:06 Breathing/Wheezing trimethoprim [From Bactrim] Allergy Hives Verified 06/24/18 21:06 contrast dye Allergy Anaphylatic Uncoded 06/24/18 21:06 Shock Home Medications: Home Medications Aspirin/Acetaminophen/Caffeine [Excedrin Migraine Caplet] 1 each PO DAILY PRN [History Confirmed 06/24/18] Atorvastatin* [Lipitor*] 10 mg PO BEDTIME 06/24/18 [History Confirmed 06/24/18] Levocetirizine Dihydrochloride [Xyzal Allergy 24Hr] 2.5 mg PO QPM 06/24/18 [ History Confirmed 06/24/18] Magnesium [Magnesium Elemental] 1 dose PO QAM 06/24/18 [History Confirmed ] Turmeric/Curcumin 1 cap PO DAILY 06/24/18 [History Confirmed 06/24/18] PMH/Surg Hx/FS Hx/Imm Hx Previously Healthy: Yes - Surgical History Surgical History: Yes Surgery Procedure, Year, and Place: HYSTERECTOMY, MARYANN MASTECTOMIES prophylactally, CHOLECYSTECTOMY, - Family History Known Family History: Positive: Hypertension, Other - brca1 - Social History Alcohol Use: None Substance Use Type: None Smoking Status (MU): Former Smoker When Did the Patient Quit Smoking/Using Tobacco: 1993 Review of Systems All Other Systems Reviewed And Are Negative: Yes Skin: Positive: Rash Is Patient Immunocompromised?: No Physical Exam Triage Information Reviewed: Yes Appearance: Well-Appearing, Pain Distress, Obese Vital Signs: Initial Vital Signs Temp 98.9 F 06/24/18 20:52 Pulse 82 06/24/18 20:52 Resp 20 06/24/18 20:52 BP 138/81 06/24/18 20:52 Pulse Ox 97 06/24/18 20:52 Vital Signs Reviewed: Yes Eye Exam: Normal ENT Exam: Normal Dental Exam: Normal Respiratory Exam: Normal Cardiovascular Exam: Normal Abdominal Exam: Normal Bowel Sounds: Positive: Present Musculoskeletal Exam: Normal Neurological Exam: Normal Psychological Exam: Normal Skin: Positive: Rashes - large area of erythema and scalling of the left lower extremity, also has a small patch o nthe right breast Course/Dx - Course Course Of Treatment: hx obtained, exam performed ,meds reviewed, treated for subcutaneous infection and dermatitis - Differential Diagnoses - Skin Complaint Differential Diagnoses: Cellulitis, Contact Dermatitis, Eczema - Diagnoses Provider Diagnosis: Cellulitis of left lower leg, Dermatitis Discharge - Sign-Out/Discharge Documenting (check all that apply): Patient Departure All imaging exams completed and their final reports reviewed: No Studies - Discharge Plan Condition: Stable Disposition: HOME Prescriptions: Clobetasol 0.05% OINT* 1 applic TOPICAL BID #60 gm Patient Education Materials: Cellulitis (ED) Referrals: Nixon Sawyer MD [Primary Care Provider] - Additional Instructions: 1. use the antibiotic cream twice a day for 7 -10 days 2. Use the steroid cream twice a day for 2 weeks then every tuesday and tuesday as needed. 3. follow up with medical practice assistant if not improving. 4. Try to leave the leg uncovered as much as possible to allow air and prevent irritation - Billing Disposition and Condition Condition: STABLE Disposition: Home
== END 2018-06-24 21:44 | disposition home or self-care (01) ==
LOC: UCCORT 20:43
DX: L03.116 Cellulitis of left lower limb (principal); L30.9 Dermatitis, unspecified; Z88.0 Allergy status to penicillin; Z88.8 Allergy status to other drugs, medicaments and biological substances; Z91.041 Radiographic dye allergy status; Z79.82 Long term (current) use of aspirin; Z79.899 Other long term (current) drug therapy; Z87.891 Personal history of nicotine dependence
CPT/HCPCS: 99212; G0463

== ENCOUNTER 2018-10-02 16:17 | Emergency (ER) | payer BC ==
[2018-10-02 16:34] VITALS: BP 134/85
--- NOTE | 2018-10-02 16:54 | UC ---
Lower Extremity/Ankle HPI - HPI Summary HPI Summary: The 53-year-old female who complains of left ankle soreness intermittently over the past few days. She denies any injury however she has been wearing sandals that did not have any support this week. She tried to do her usual walk but was only able to go once around the building and then had pain. She denies any recent illness. She walks without difficulty. She states the pain is sharp but only intermittent and many times at night. She denies any calf pain. - History of Current Complaint Chief Complaint: UCLowerExtremity Stated Complaint: LEFT ANKLE COMPLAINT Time Seen by Provider: 10/02/18 16:40 Hx Obtained From: Patient Hx Last Menstrual Period: 2002 ?: No Onset/Duration: Gradual Onset Severity Initially: Mild Severity Currently: Mild Pain Intensity: 5 Aggravating Factor(s): Ambulation - Excessive ambulation causes increased pain. Alleviating Factor(s): Rest Able to Bear Weight: Yes - Allergies/Home Medications Allergies/Adverse Reactions: Allergies Allergy/AdvReac Type Severity Reaction Status Date / Time cephalexin [From Keflex] Allergy Hives Verified 10/02/18 16:35 codeine Allergy Difficulty Verified 10/02/18 16:35 Breathing/Wheezing levofloxacin [From Levaquin] Allergy Difficulty Verified 10/02/18 16:35 Swallowing Penicillins Allergy Difficulty Verified 10/02/18 16:35 Breathing/Wheezing sulfamethoxazole Allergy Hives Verified 10/02/18 16:35 [From Bactrim] tramadol [From Ultram] Allergy Difficulty Verified 10/02/18 16:35 Breathing/Wheezing trimethoprim [From Bactrim] Allergy Hives Verified 10/02/18 16:35 contrast dye Allergy Anaphylatic Uncoded 10/02/18 16:35 Shock Home Medications: Home Medications Losartan TAB* [Cozaar TAB*] 25 mg PO DAILY 10/02/18 [History Confirmed 10/02/18] PMH/Surg Hx/FS Hx/Imm Hx Previously Healthy: Yes Cardiovascular History: Hypertension GI/ History: Other - Crohn's disease. - Surgical History Surgical History: Yes Surgery Procedure, Year, and Place: HYSTERECTOMY, MARYANN MASTECTOMIES prophylactally, CHOLECYSTECTOMY, - Family History Known Family History: Positive: Hypertension, Other - brca1 - Social History Alcohol Use: None Substance Use Type: None Smoking Status (MU): Former Smoker When Did the Patient Quit Smoking/Using Tobacco: 1993 Review of Systems All Other Systems Reviewed And Are Negative: Yes Musculoskeletal: Positive: Other: - Occasional pain around left lateral ankle but none while here. Denies calf pain.. Negative: Calf Tenderness Is Patient Immunocompromised?: No Physical Exam Triage Information Reviewed: Yes Appearance: Well-Appearing, No Pain Distress, Well-Nourished Vital Signs: Initial Vital Signs Temp 98.6 F 10/02/18 16:31 Pulse 78 10/02/18 16:31 Resp 14 10/02/18 16:31 BP 134/85 10/02/18 16:31 Pulse Ox 100 10/02/18 16:31 Vital Signs Reviewed: Yes Musculoskeletal: Positive: Strength Intact, ROM Intact, No Edema, Other: - Calf is nontender. I'm unable to replicate the foot or ankle pain. Achilles is intact. Neurological: Positive: Alert, Muscle Tone Normal Psychological Exam: Normal Skin Exam: Normal Lower Extremity Course/Dx - Course Course Of Treatment: Left ankle x-ray:REPORT AND IMPRESSION: #. Negative for fracture or osteochondral lesion. Preserved joint spaces. Os trigonum accessory ossicle. Mild nonfocal soft tissue swelling. I think this is more of an overuse strain and the patient has been wearing flip- flops therefore I asked her to wear some good supportive shoes or sneakers over the next week, limit her walking exercises and follow-up with a refrigerated company driver or orthopedist if no improvement in 1 week. She may also take Motrin for pain every 8 hours. - Differential Dx/Diagnosis Provider Diagnosis: Left ankle strain Discharge - Sign-Out/Discharge Documenting (check all that apply): Patient Departure All imaging exams completed and their final reports reviewed: Yes - Discharge Plan Condition: Good Disposition: HOME Patient Education Materials: Ankle Strain (ED) Referrals: Nixon Sawyer MD [Primary Care Provider] - Neil Vazquez MD [Medical Doctor] - Additional Instructions: May apply heat to the ice may apply heat to the sore area and elevate as much as possible. Ambulate as pain permits. May take Tylenol or Motrin for pain. If you continue to have pain ,follow-up with either an orthopedist or a refrigerated company driver. Wear comfortable supportive sneakers over the next week or 2. - Billing Disposition and Condition Condition: GOOD Disposition: Home
== END 2018-10-02 17:19 | disposition home or self-care (01) ==
LOC: UCCORT 16:17
DX: S93.402A Sprain of unspecified ligament of left ankle, initial encounter (principal); X58.XXXA Exposure to other specified factors, initial encounter; Y93.01 Activity, walking, marching and hiking; Y92.9 Unspecified place or not applicable; I10 Essential (primary) hypertension; Z87.891 Personal history of nicotine dependence
CPT/HCPCS: 99211; G0463

== ENCOUNTER 2018-12-12 15:52 | Emergency (ER) | payer BC ==
[2018-12-12 16:20] VITALS: BP 149/96
--- NOTE | 2018-12-12 16:58 | UC ---
Throat Pain/Nasal Jeffrey HPI - HPI Summary HPI Summary: Patient is a 53yo female presenting with nasal congestion and sinus tenderness x3 weeks. Patient notes URI symptoms with fever and chills when symptoms first began. States it has resolved except for sinus pain. Notes headaches. Notes right ear pain. Notes intermittent blood-tinged mucus coming from her nose. Denies sore throat and cough. Denies SOB and wheezing. Denies fever and chills. Denies n/v/d. States she takes allergy medication every day that has not helped symptoms. - History of Current Complaint Chief Complaint: UCGeneralIllness Stated Complaint: SINUS COMPLAINT Hx Obtained From: Patient Hx Last Menstrual Period: 2002 Severity: Moderate Pain Intensity: 5 Pain Scale Used: 0-10 Numeric - Allergies/Home Medications Allergies/Adverse Reactions: Allergies Allergy/AdvReac Type Severity Reaction Status Date / Time cephalexin [From Keflex] Allergy Hives Verified 12/12/18 16:21 codeine Allergy Difficulty Verified 12/12/18 16:21 Breathing/Wheezing levofloxacin [From Levaquin] Allergy Difficulty Verified 12/12/18 16:21 Swallowing Penicillins Allergy Difficulty Verified 12/12/18 16:21 Breathing/Wheezing sulfamethoxazole Allergy Hives Verified 12/12/18 16:21 [From Bactrim] tramadol [From Ultram] Allergy Difficulty Verified 12/12/18 16:21 Breathing/Wheezing trimethoprim [From Bactrim] Allergy Hives Verified 12/12/18 16:21 contrast dye Allergy Anaphylatic Uncoded 12/12/18 16:21 Shock Home Medications: Home Medications Famciclovir(NF) [Famvir(NF)] 500 mg PO QPM 12/12/18 [History Confirmed 12/12/18] PMH/Surg Hx/FS Hx/Imm Hx Endocrine History: Dyslipidemia - Surgical History Surgical History: Yes Surgery Procedure, Year, and Place: HYSTERECTOMY, MARYANN MASTECTOMIES prophylactally, CHOLECYSTECTOMY, - Family History Known Family History: Positive: Hypertension, Other - brca1 - Social History Alcohol Use: None Substance Use Type: None Smoking Status (MU): Former Smoker When Did the Patient Quit Smoking/Using Tobacco: 1993 Review of Systems All Other Systems Reviewed And Are Negative: Yes Constitutional: Positive: Negative. Negative: Fever, Chills Eyes: Positive: Negative ENT: Positive: Dental Pain, Ear Ache, Sinus Congestion, Sinus Pain/Tenderness. Negative: Sore Throat, Nasal Discharge Respiratory: Positive: Negative. Negative: Shortness Of Breath, Cough Cardiovascular: Positive: Negative. Negative: Palpitations, Chest Pain Gastrointestinal: Positive: Negative Musculoskeletal: Positive: Negative. Negative: Myalgia Neurological: Positive: Headache Physical Exam Triage Information Reviewed: Yes Appearance: Well-Appearing, No Pain Distress, Well-Nourished Vital Signs: Initial Vital Signs Temp 99.1 F 12/12/18 16:16 Pulse 88 12/12/18 16:16 Resp 18 12/12/18 16:16 BP 149/96 12/12/18 16:16 Pulse Ox 99 12/12/18 16:16 Vital Signs Reviewed: Yes Eyes: Positive: Conjunctiva Clear ENT: Positive: Hearing grossly normal, Pharynx normal, Nasal congestion, Nasal drainage - PND, TMs normal, Sinus tenderness - maxillary, Uvula midline. Negative: Pharyngeal erythema, TM bulging, TM dull, TM red, Tonsillar swelling, Tonsillar exudate Neck exam: Normal Neck: Positive: Supple, Nontender, No Lymphadenopathy Respiratory Exam: Normal Respiratory: Positive: Lungs clear, Normal breath sounds, No respiratory distress. Negative: Crackles, Rhonchi, Stridor, Wheezing Cardiovascular Exam: Normal Cardiovascular: Positive: RRR. Negative: Tachycardia Neurological: Positive: Alert Psychological: Positive: Age Appropriate Behavior Throat Pain/Nasal Course/Dx - Course Course Of Treatment: I am treating for sinusitis with doxycycline due to other medication allergies. She states she believes she has taken this before without any issue. Also prescribed Flonase. Instructed patient to stop taking her magnesium while on doxy as it may cause it to be less effective. Instructed to follow up with PCP if symptoms persist past 7-10 days. Instructed to return or go to the ED if symptoms worsen. Patient voiced understanding and agreed with treatment plan. - Differential Dx/Diagnosis Provider Diagnosis: Sinusitis Discharge ED - Sign-Out/Discharge Documenting (check all that apply): Patient Departure All imaging exams completed and their final reports reviewed: No Studies - Discharge Plan Condition: Stable Disposition: HOME Prescriptions: DOXYcycline CAP(*) [DOXYcycline 100MG CAP(*)] 100 mg PO BID #14 cap Fluticasone NASAL SPRAY 50MCG* [Flonase NASAL SPRAY 50MCG*] 2 spray BOTH NARES DAILY PRN #1 btl PRN Reason: Congestion Patient Education Materials: Sinusitis (ED) Referrals: Nixon Sawyer MD [Primary Care Provider] - If Needed Additional Instructions: As discussed, take Doxycycline for the treatment of your sinusitis. STOP taking your MAGNESIUM while you are taking the doxycycline as it may make the antibiotic less effective. You may use flonase as directed for symptomatic relief. You may take ibuprofen as directed for pain relief. Get plenty of rest and fluids. Return or follow up with your primary care doctor if your symptoms worsen or do not resolve within 10 days. - Billing Disposition and Condition Condition: STABLE Disposition: Home
== END 2018-12-12 16:58 | disposition home or self-care (01) ==
LOC: UCCORT 15:52
DX: J32.9 Chronic sinusitis, unspecified (principal); R51 Headache; Z88.1 Allergy status to other antibiotic agents; Z88.5 Allergy status to narcotic agent; Z88.0 Allergy status to penicillin; Z88.2 Allergy status to sulfonamides; Z91.09 Other allergy status, other than to drugs and biological substances; Z87.891 Personal history of nicotine dependence
CPT/HCPCS: 99212; G0463

== ENCOUNTER 2019-01-03 16:21 | Emergency (ER) | payer BC ==
[2019-01-03 16:50] VITALS: BP 141/82
--- NOTE | 2019-01-03 16:54 | UC ---
Skin Complaint HPI - HPI Summary HPI Summary: 53 year old female presents wtih cracks b/l lip edges x 1 week. NO vesicles, blisters. DId not happen in the past. no vitamin/ anemia deficiencies known. no fever, chills. did recover from sinus infection ~ 1 week ago. - History of Current Complaint Time Seen by Provider: 01/03/19 16:37 Stated Complaint: SORES ON MOUTH Hx Obtained From: Patient Hx Last Menstrual Period: 2002 ?: No Onset/Duration: Sudden Onset, Lasting Weeks Timing: Constant Current Severity: None Pain Intensity: 0 Pain Scale Used: 0-10 Numeric Location: Discrete - b/l mouth corners - Allergy/Home Medications Allergies/Adverse Reactions: Allergies Allergy/AdvReac Type Severity Reaction Status Date / Time cephalexin [From Keflex] Allergy Hives Verified 01/03/19 16:38 codeine Allergy Difficulty Verified 01/03/19 16:38 Breathing/Wheezing levofloxacin [From Levaquin] Allergy Difficulty Verified 01/03/19 16:38 Swallowing Penicillins Allergy Difficulty Verified 01/03/19 16:38 Breathing/Wheezing sulfamethoxazole Allergy Hives Verified 01/03/19 16:38 [From Bactrim] tramadol [From Ultram] Allergy Difficulty Verified 01/03/19 16:38 Breathing/Wheezing trimethoprim [From Bactrim] Allergy Hives Verified 01/03/19 16:38 contrast dye Allergy Anaphylatic Uncoded 01/03/19 16:38 Shock Home Medications: Home Medications Glorious Gut Probiotioc 1 tab PO QPM 01/03/19 [History Confirmed 01/03/19] PMH/Surg Hx/FS Hx/Imm Hx Previously Healthy: Yes - Surgical History Surgical History: Yes Surgery Procedure, Year, and Place: HYSTERECTOMY, MARYANN MASTECTOMIES prophylactally, CHOLECYSTECTOMY, - Family History Known Family History: Positive: Hypertension, Other - brca1 - Social History Occupation: Employed Full-time Alcohol Use: None Substance Use Type: None Smoking Status (MU): Former Smoker When Did the Patient Quit Smoking/Using Tobacco: 1993 Review of Systems All Other Systems Reviewed And Are Negative: Yes Constitutional: Negative: Fever, Chills, Fatigue Neurological: Positive: Negative Psychological: Positive: Negative Is Patient Immunocompromised?: No Physical Exam Triage Information Reviewed: Yes Appearance: Well-Appearing, No Pain Distress, Well-Nourished Vital Signs: Initial Vital Signs Temp 98.3 F 01/03/19 16:46 Pulse 80 01/03/19 16:46 Resp 16 01/03/19 16:46 BP 141/82 01/03/19 16:46 Pulse Ox 99 01/03/19 16:46 Vital Signs Reviewed: Yes Eyes: Positive: Conjunctiva Clear ENT: Positive: Hearing grossly normal, Pharynx normal, Uvula midline Dental Exam: Normal Dental: Positive: Cervical Lymphadenopathy Neurological Exam: Normal Neurological: Positive: Alert Psychological Exam: Normal Skin: Positive: Other - b/l angular skin fissues at corners of mouth. no drainage, no erythema. no mouth wounds or sores. Course/Dx - Course Course Of Treatment: CHelitis: - Mix 50/50 small amount of bacitracin/ hydrocortisone ointment and apply to corner of mouth twice daily x 2-3 days, then stop hydrocortisone and continue with antibiotic ointment. - IF no improvement within 3-5 days, follow up with primary physician for blood work to rule out anemia, other deficiencies. - Increase fluid intake to prevent dehydration- may cause dry skin and chapping. - Use chap stick or petrolum during the day to prevent drying out. - Diagnoses Provider Diagnosis: Angular cheilitis Discharge ED - Sign-Out/Discharge Documenting (check all that apply): Patient Departure All imaging exams completed and their final reports reviewed: No Studies - Discharge Plan Condition: Good Disposition: HOME Prescriptions: Bacitracin OINTMENT* 1 applic TOPICAL BID #1 tube Hydrocortisone 0.5% OINT* 1 applic TOPICAL BID #1 tube Referrals: Nixon Sawyer MD [Primary Care Provider] - Additional Instructions: CHelitis: - Mix 50/50 small amount of bacitracin/ hydrocortisone ointment and apply to corner of mouth twice daily x 2-3 days, then stop hydrocortisone and continue with antibiotic ointment. - IF no improvement within 3-5 days, follow up with primary physician for blood work to rule out anemia, other deficiencies. - Increase fluid intake to prevent dehydration- may cause dry skin and chapping. - Use chap stick or petrolum during the day to prevent drying out. - Billing Disposition and Condition Condition: GOOD Disposition: Home
== END 2019-01-03 17:14 | disposition home or self-care (01) ==
LOC: UCCORT 16:21
DX: K13.0 Diseases of lips (principal); Z88.1 Allergy status to other antibiotic agents; Z88.5 Allergy status to narcotic agent; Z88.0 Allergy status to penicillin; Z88.2 Allergy status to sulfonamides; Z91.041 Radiographic dye allergy status; Z87.891 Personal history of nicotine dependence
CPT/HCPCS: 99212; G0463